=== PATIENT | male | born 1970 | race Caucasian/White ===

== ENCOUNTER 2016-11-29 15:48 | Emergency (ER) | payer OTHER ==
[~2016-11-29 15:48] MED LIST: CLEOCIN HCL150 MG PO; CLEOCIN PO; KEFLEX500 M1 PO; NO MEDICATIONS; NORFLEX100 M1 PO; TYLENOL #3 PO; ULTRAM PO; VICODIN 5/1 TAB 5/50 PO; VISTARIL PO; VOLTAREN75 MG PO; ZOFRANODT SL
== END 2016-11-29 16:50 | disposition home or self-care (01) ==
LOC: SED 15:48
DX: L05.91 Pilonidal cyst without abscess (principal); I10 Essential (primary) hypertension; J45.909 Unspecified asthma, uncomplicated; F17.210 Nicotine dependence, cigarettes, uncomplicated; Z86.14 Personal history of Methicillin resistant Staphylococcus aureus infection
CPT/HCPCS: 10080; 87070; 87205; 99283